=== PATIENT | female | born 1945 | race Two or more races ===

== ENCOUNTER → 2016-09-07 | Outpatient (CLI) | payer MEDICARE, BC ==
--- NOTE | 2016-09-07 16:24 | RADRPT ---
PROCEDURE: XR Knees. CLINICAL INDICATION: Bilateral knee pain. TECHNIQUE: Total of six views. Frontal, oblique, and lateral views of both knees. COMPARISON: No prior study is available for comparison. FINDINGS: There is no fracture or dislocation. The soft tissues are normal. There are degenerative changes with osteophytes arising from all 3 joint compartment margins bilater ally. There is bilateral patellofemoral joint compartment narrowing and medial joint compartment na rrowing with right worse than left. There is no lytic or blastic lesion. There is no radiopaque foreign body. IMPRESSION: 1. Moderate degenerative changes of both knees with right worse than left. RPTAT: QQ .Oral Reece MD, MD Date Time Electronically viewed and signed by .Oral Reece MD, on 09/07/2016 16:23 .R/
--- NOTE | 2016-09-07 16:24 | RADRPT ---
PROCEDURE: XR Pelvis and Hips. CLINICAL INDICATION: Pelvic pain. Bilateral hip pain. TECHNIQUE: Five views. Frontal pelvis. Frontal and lateral right hip. Frontal and lateral left hip. COMPARISON: No prior studies are available for comparison. FINDINGS: There is no fracture or dislocation. The soft tissues are normal. There are degenerative changes with bilateral hip joint space narrowing and osteophytes. There are degenerative changes of the lower lumbar spine. There is no lytic or blastic lesion. There is no radiopaque foreign body. IMPRESSION: 1. Moderate degenerative changes of both hips. 2. Degenerative changes of the lower lumbar spine. RPTAT: QQ .Oral Reece MD, MD Date Time Electronically viewed and signed by .Oral Reece MD, on 09/07/2016 16:24 .R/
--- NOTE | 2016-09-07 20:24 | HKNOTE ---
DATE OF SERVICE: 09/07/2016 MAIN COMPLAINT: Pain in both knees, worse on the right side. HISTORY OF MAIN COMPLAINT: The patient is a 70-year-old female who has had pain in both knees for s everal years. She has also had pain in her lower back and both buttocks for several years. She has been seen by Dr. Sullivan, who evaluated her lumbar spine. He indicated that she had spinal steno sis, but did not need surgery. He did not, however, recommend any conservative care for the lumbar spine (possible lumbar epidural cortisone injections). She is getting physical therapy for her lumbar spine. Her physical therapy, Aria Owusu, refer red her to me for evaluation of her painful knees. The patient is going on vacation to [place] a [employer] cruise in September. She indicates that if injections are indicated, that she have them perhaps a week or so before the time of her vacation. PRESENT COMPLAINTS: The pain in her knee is localized mainly to the medial side of each knee. Pain varies from moderate to severe. On a bad day, she cannot walk more than a half a block without sto pping. On a good day, she can walk up to a mile. On a bad day, she gets pain in both knees with ev aubrey step that she takes. Her pain is always aggravated by walking, weightbearing, and stair climbing. She sometimes gets nig ht pain. She has tried taking Aleve, but it does not seem to help much. Physical therapy seemed to be her mainstay of relief. She has no numbness or tingling in her legs. She does not use a walking aid. She does not limp. H er leg lengths are equal. She does not have a shoe lift. She cannot clip her toenails, but she can put on her shoes and socks. PAST ORTHOPEDIC HISTORY: PREVIOUS ORTHOPEDIC OPERATIONS: None. PRIOR CORTISONE INTAKE: Dr. Sullivan injected her right knee with cortisone several months ago. I t only lasted for 6 days or so. ALCOHOL INTAKE: One to 2 glasses a week (wine). OTHER JOINT PROBLEMS: None. BLOOD TESTS FOR ARTHRITIS: None. PRIOR INJURIES TO HIPS OR KNEES: None. WORK STATUS: The patient is retired and spends most of her time with her young grandchildren. PAST MEDICAL HISTORY: 1. Hypercholesterolemia. 2. Fluctuating weight (the patient's weight went up as high as 179 pounds. At one point, she got h er weight down to about 136 pounds. Currently, her weight has gone back up to 152 pounds). PAST SURGICAL HISTORY: Negative. ALLERGIES: NONE. MEDICATIONS: 1. Simvastatin 5 mg at bedtime daily for cholesterol. 2. Restasis eyedrops. 3. Estrogen ring 2 mg a day. 4. Probiotics 15/35 two capsules daily. 5. Fish oil. 6. Biotin. 7. Vitamin D3. 8. Aleve. 9. Organic arnica. FAMILY HISTORY: Father at 92 of heart problems and a stroke. Mother at 59 of cancer. SYSTEMS REVIEW: Prone to heartburn, varicose veins, gait disturbance from her painful knees, hemorr hoids. HABITS: The patient smoked for 10 years and quit 30 years ago. Alcohol intake 1 to 2 glasses of wi ne on occasion. [employer]ER[employer]IST: Dr. Reinaldo Hilliard, [address] [address], [address] [id number]. PHYSICAL EXAMINATION: GENERAL: The patient is a delightful and youthful 70-year-old female. VITAL SIGNS: Height 4 feet 10 inches, weight 152 pounds, blood pressure 120/70, temperature 98.2. GAIT: The patient's gait is antalgic. She walks without a walking aid. BACK: Dynamic pain assessment reveals a pain free range of motion in flexion, extension 50% (reprod uces pain in the right buttocks), lateral bending, and rotation. Inspection of the spine reveals no list. There is no lumbar paraspinal muscle spasm. The pelvis is level. Facet stress test is nega tive bilaterally. Palpation of the spine demonstrates no tenderness of the spinous processes, facet joints, sacroiliac joint, sciatic notch, or posterior thigh. NEUROLOGIC: Sensory testing (pinprick) reveals no deficit in the lower extremities. Motor examinat ion reveals no muscle deficit in the lower extremities. Deep tendon reflexes in the lower extremiti es: Right knee jerk plus, left knee jerk plus, right ankle jerk plus, left ankle jerk plus. Straig ht leg raising is negative bilaterally at 80 degrees. Lasegue and FIORELLA tests are negative. HIPS: Both hips have full range of motion without pain. There is no tenderness anywhere around eit her hip. RIGHT KNEE: The right knee shows normal alignment. Active and passive extension lacks 15 degrees. Active and passive flexion is to 100 degrees. The medial and lateral collateral ligaments and cruc iate ligaments are intact. Melinda test is negative. There is no effusion, scarring, or cysts. 6+ crepitus in the knee, none in the patella. Marked tenderness along the medial joint line. The pat tiffany tracks normally. There is no tenderness on the articular surface of the patella or in the lim llar groove. The Q angle is normal. LEFT KNEE: The left knee shows normal alignment. Active and passive extension lacks 10 degrees. A ctive and passive flexion is to 115 degrees. The medial and lateral collateral ligaments and crucia te ligaments are intact. Melinda test is negative. There is no effusion, tenderness, scarring, or cysts. 6+ crepitus in the knee, none in the patella. The patella tracks normally. There is no ten derness on the articular surface of the patella or in the patellar groove. The Q angle is normal. IMAGING: Plain x-rays of the knees obtained today at the [facility] (3 views eac h knee). These show severe narrowing of the medial joint space of both knees, slightly worse on the right side. The patellofemoral joint is markedly reduced with subchondral sclerosis and intraosseo us cyst formation. DIAGNOSES: 1. Severe degenerative osteoarthritis of both knees, more symptomatic on the left side. 2. Hypercholesterolemia. 3. Fluctuating weight. MANAGEMENT: The patient was advised that she most certainly will require to be treated with knee re placements on both sides sooner or later. I offered to give her a cortisone injection into each kne e today, but she declined indicating that she would rather return in about a month's time which woul d be about a week before her trip to [place]. Meanwhile, we briefly discussed total knee replacement. The procedure was discussed with her in a f air amount of detail, the technique was discussed. Postoperative course was discussed. The patient will return a week or so prior to her scheduled vacation. Dictated By: WILFRID HILLS/RICKEY Conf#: [id number] DID#: [id number]
== END | disposition home or self-care (01) ==
LOC: HKI 15:14
DX: M17.0 Bilateral primary osteoarthritis of knee (principal); M54.5 Low back pain; M79.1 Myalgia; E78.00 Pure hypercholesterolemia, unspecified; Z87.891 Personal history of nicotine dependence
CPT/HCPCS: 73522; 73562; G0463